=== PATIENT | female | born 1980 | race Caucasian/White ===

== ENCOUNTER 2017-02-25 23:33 | Emergency (ER) | payer MEDICAID, OTHER ==
[~2017-02-25] VITALS: Ht 160 cm; Wt 64.0 kg
[~2017-02-25 23:33] MED LIST: IBUP-1222 PO; OXYC-302 PO
[2017-02-25 23:35] VITALS: BP 119/85
[2017-02-25] MEDS ORDERED: CEFAZOLIN 1,000 MG ONE (23:57)
[2017-02-26] MEDS ORDERED: CEFAZOLIN 1,000 MG IM ONE
== END 2017-02-26 00:38 | disposition home or self-care (01) ==
LOC: ED 02-26 00:34
DX: L03.114 Cellulitis of left upper limb (principal); M41.9 Scoliosis, unspecified
CPT/HCPCS: 96372; 99283; J0690

== ENCOUNTER 2018-09-27 02:45 | Inpatient (IN) | payer MEDICAID, OTHER ==
[~2018-09-27] VITALS: Ht 161.3 cm; Wt 65.2 kg
--- NOTE | 2018-09-27 03:10 | NUR ---
PT IN GOWN IN [facility]. PT STRIPPED OF ALL PERSONAL POSSESSIONS WHICH WERE PLACED IN ONE BAG AND LOCKED IN LOCKED STORAGE. PT TEARFUL AT THIS TIME. PT EDUCATED ON ER PROCESS AND VERBALIZES UNDERSTANDING. PT PROVIDED WITH URINE CUP AND INSTRUCTED TO VOID. PT ADMITS TO USING METHAMPHETAMINE AND ATIVAN TONIGHT.
--- NOTE | 2018-09-27 03:55 | NUR ---
URINE SAMPLE COLLECTED AND WALKED TO LAB.
--- NOTE | 2018-09-27 03:55 | NUR ---
I BREATHALYZED PT AND SHE IS AT 0.000 OF 0350 HOURS
[2018-09-27 04:13] LABS: BASOPHILS # (AUTO) 0.04 x10^3/uL (0-0.1); BASOPHILS % (AUTO) 1 % (0-1); EOSINOPHILS # (AUTO) 0.18 x10^3/uL (0-0.4); EOSINOPHILS % (AUTO) 2 % (1-7); LYMPHOCYTES # (AUTO) 1.96 x10^3/uL (1-3.4); LYMPHOCYTES % (AUTO) 25 % (22-44); MD NO; MEAN CORPUSCULAR HEMOGLOBIN 30.6 pg (27.0-34.8); MEAN CORPUSCULAR VOLUME 89.9 fL (80-100); MEAN PLATELET VOLUME 7.8 fL (7.4-10.4); MONOCYTES # (AUTO) 0.56 x10^3/uL (0.2-0.8); MONOCYTES % (AUTO) 7 % (2-9); NEUTROPHILS % (AUTO) 65 % (42-75); PLATELET COUNT 282 x10^3/uL (130-400); RED BLOOD COUNT 4.38 x10^6/uL (3.82-5.3); RED CELL DISTRIBUTION WIDTH 12.9 % (9.6-15.2)
[2018-09-27] MEDS ORDERED: ZIPRASIDONE 20 MG INJ IM ONE ×2 (04:18→04:30)
[2018-09-27 04:25] LABS: ALANINE AMINOTRANSFERASE 20 U/L (12-78); ALBUMIN 3.6 g/dL (3.4-5.0); ANION GAP 6 mmol/L (5-15); CALCIUM 8.9 mg/dL (8.5-10.1); CHLORIDE 106 mmol/L (98-107)
[2018-09-27 04:30] LABS: ALKALINE PHOSPHATASE 75 U/L (45-117); BILIRUBIN,TOTAL 0.3 mg/dL (0.2-1.0); SALICYLATE LEVEL < 1.7 mg/dL (2.8-20.0); TOTAL PROTEIN 7.6 g/dL (6.4-8.2)
[2018-09-27 04:32] LABS: AMPHETAMINE SCREEN, URINE Positive (Negative); BARBITURATE SCREEN, URINE Negative (Negative); BENZODIAZEPINE SCREEN, URINE Negative (Negative); CANNABINOID SCREEN, URINE Negative (Negative); COCAINE SCREEN, URINE Negative (Negative); METHADONE SCREEN, URINE Negative (Negative); OPIATE SCREEN, URINE Negative (Negative)
[2018-09-27 04:38] LABS: ACETAMINOPHEN < 2 mcg/mL (10-30)
--- NOTE | 2018-09-27 04:55 | NUR ---
pt medicated per mar for anxiety. pt cooperative with security at bs.
--- NOTE | 2018-09-27 05:05 | NUR ---
pt asleep in [facility] at this time; lilan. Sitter outside of room at this time.
--- NOTE | 2018-09-27 05:40 | NUR ---
pt asleep in [facility] at this time; el. sitter outside of room for direct observation of pt at this time.
--- NOTE | 2018-09-27 06:02 | NUR ---
TP RN: PACKET FAXED TO [facility] ONLY PT. IS SELF PAY. CONFIRMATION FAX RECEIVED.
--- NOTE | 2018-09-27 07:02 | NUR ---
PT SLEEPING IN [facility] AT THIS TIME; NITIN. SITTER OUTSIDE OF ROOM FOR DIRECT PT OBSERVATION.
--- NOTE | 2018-09-27 07:09 | NUR ---
report of pt to janelle akins. all questions answered.
--- NOTE | 2018-09-27 07:21 | NUR ---
RECEIVED REPORT AND ASSUMED PT. CARE. PT. IS RESTING WITHOUT CONCERNS.
--- NOTE | 2018-09-27 07:26 | NUR ---
SAFETY MEASURES MAINTAINED, SITTER REMAINS OUTSIDE OF THE ROOM.
--- NOTE | 2018-09-27 08:31 | NUR ---
PT. WAS GIVEN BREAKFAST. PT. WILL NOT SPEAK TO THE RN. VITALS MONITORED. SAFETY MEASURES MAINTAINED.
--- NOTE | 2018-09-27 10:55 | NUR ---
PT. WAS SEEN BY THE HOSPITALIST AT THIS TIME.
[2018-09-27] MEDS ORDERED: POLYETHYLENE GLYCOL 17 GM PACKET PO PRN (11:00)
[2018-09-27] MEDS ORDERED: BISACODYL 10 MG SUPP PR PRN (11:00)
[2018-09-27] MEDS ORDERED: DOCUSATE 100 MG CAPSULE PO PRN (11:00)
[2018-09-27] MEDS ORDERED: hydrALAzine 20 MG/ML, 1ML IVPush PRN (11:00)
[2018-09-27] MEDS ORDERED: ONDANSETRON ODT 4 MG PO PRN (11:00)
--- NOTE | 2018-09-27 11:07 | NUR ---
NO CHANGE AT THIS TIME.
[2018-09-27] MEDS: ENOXAPARIN 40 MG/0.4 ML SQ SCH (11:11)
[2018-09-27 11:13] LABS: FREE T4 (FREE THYROXINE) 0.89 ng/dL (0.76-1.46); THYROID STIMULATING HORMONE 4.1 mIU/L (0.358-3.740)
[2018-09-27] MEDS ORDERED: NICOTINE 21 MG/24 HR PATCH.TD24 ONE (11:49)
[2018-09-27] MEDS: NICOTINE 21 MG/24 HR PATCH.TD24 TD SCH (11:58)
--- NOTE | 2018-09-27 12:05 | NUR ---
PT. 'S VITALS ARE STABLE. PT. WAS GIVEN LUNCH.
--- NOTE | 2018-09-27 14:41 | NUR ---
PT. WAS ANXIOUS AFTER HER S/O VISITED HER. DISCUSSED WITH THE HOSPITALIST. ORDERS RECEIVED, PT. WAS MEDICATED ORDERED. PT. IS EATING CEREAL AT THIS TIME.
--- NOTE | 2018-09-27 15:21 | NUR ---
REPORT GIVEN PT. TRANSFERRED TO [address] [place] [address].
[2018-09-27 16:08] VITALS: BP 102/66
[2018-09-27 19:44] VITALS: BP 108/73
[2018-09-27] MEDS: ZOLPIDEM 5MG TABLET PO PRN (23:16)
[2018-09-27] MEDS: ACETAMINOPHEN 325 MG TABLET PO PRN (23:16)
[2018-09-28 05:51] LABS: BASOPHILS # (AUTO) 0.06 x10^3/uL (0-0.1); BASOPHILS % (AUTO) 1 % (0-1); EOSINOPHILS # (AUTO) 0.23 x10^3/uL (0-0.4); EOSINOPHILS % (AUTO) 3 % (1-7); LYMPHOCYTES % (AUTO) 40 % (22-44); MD NO; MEAN CORPUSCULAR HEMOGLOBIN 29.8 pg (27.0-34.8); MEAN CORPUSCULAR HGB CONC 32.9 g/dL (32.4-35.8); MEAN CORPUSCULAR VOLUME 90.6 fL (80-100); MEAN PLATELET VOLUME 8.2 fL (7.4-10.4); MONOCYTES # (AUTO) 0.62 x10^3/uL (0.2-0.8); MONOCYTES % (AUTO) 8 % (2-9); NEUTROPHILS # (AUTO) 3.73 x10^3/uL (1.8-6.8); NEUTROPHILS % (AUTO) 48 % (42-75); PLATELET COUNT 301 x10^3/uL (130-400); RED BLOOD COUNT 4.32 x10^6/uL (3.82-5.3); RED CELL DISTRIBUTION WIDTH 12.7 % (9.6-15.2)
[2018-09-28 05:56] LABS: ANION GAP 6 mmol/L (5-15); CALCIUM 8.9 mg/dL (8.5-10.1); CHLORIDE 104 mmol/L (98-107)
[2018-09-28 05:57] LABS: CREATININE 0.63 mg/dL (0.55-1.02)
[2018-09-28 07:49] VITALS: BP 116/79
[2018-09-28] MEDS: NICOTINE 21 MG/24 HR PATCH.TD24 TD SCH (11:05)
[2018-09-28] MEDS: ENOXAPARIN 40 MG/0.4 ML SQ SCH (11:05)
[2018-09-28 20:25] VITALS: BP 101/67
[2018-09-28] MEDS: ACETAMINOPHEN 325 MG TABLET PO PRN (21:46)
[2018-09-28] MEDS: ZOLPIDEM 5MG TABLET PO PRN (21:46)
[2018-09-29 08:00] VITALS: BP 111/64
[2018-09-29] MEDS: NICOTINE 21 MG/24 HR PATCH.TD24 TD SCH (11:00)
[2018-09-29] MEDS: ENOXAPARIN 40 MG/0.4 ML SQ SCH (12:00)
[2018-09-29] MEDS ORDERED: NICOTINE 21 MG/24 HR PATCH.TD24 TD ONE (16:00)
[2018-09-29 20:00] VITALS: BP 112/75
[2018-09-29] MEDS: ZOLPIDEM 5MG TABLET PO PRN (21:03)
[2018-09-30] MEDS: ZOLPIDEM 5MG TABLET PO PRN (01:21)
[2018-09-30 07:53] VITALS: BP 99/65
[2018-09-30] MEDS: NICOTINE 21 MG/24 HR PATCH.TD24 TD SCH (11:06)
[2018-09-30] MEDS: ENOXAPARIN 40 MG/0.4 ML SQ SCH (11:07)
[2018-09-30 20:22] VITALS: BP 109/73
[2018-09-30] MEDS: TRAZODONE 50MG TABLET PO PRN (21:22)
[2018-09-30] MEDS: ACETAMINOPHEN 325 MG TABLET PO PRN (22:37)
[2018-10-01] MEDS: ACETAMINOPHEN 325 MG TABLET PO PRN (06:30)
[2018-10-01 08:00] VITALS: BP 103/75
[2018-10-01] MEDS: NICOTINE 21 MG/24 HR PATCH.TD24 TD SCH (11:07)
[2018-10-01] MEDS: ENOXAPARIN 40 MG/0.4 ML SQ SCH ×2 (12:00→12:12)
[2018-10-01] MEDS: NICOTINE 7 MG/24 HR PATCH.TD24 TD SCH (17:10)
[2018-10-01] MEDS: MAGNESIUM HYDROXIDE 8%, 30ML UDC PO PRN (17:46)
[2018-10-01 20:03] VITALS: BP 108/69
[2018-10-01] MEDS: TRAZODONE 50MG TABLET PO PRN (21:12)
[2018-10-02 07:52] VITALS: BP 92/57
[2018-10-02] MEDS: ENOXAPARIN 40 MG/0.4 ML SQ SCH (12:00)
[2018-10-02] MEDS: MAGNESIUM HYDROXIDE 8%, 30ML UDC PO PRN (14:54)
[2018-10-02] MEDS: ACETAMINOPHEN 325 MG TABLET PO PRN (14:54)
[2018-10-02] MEDS: NICOTINE 7 MG/24 HR PATCH.TD24 TD SCH (17:30)
[2018-10-02 19:42] VITALS: BP 100/61
[2018-10-02] MEDS: TRAZODONE 50MG TABLET PO PRN (21:13)
[2018-10-03 08:00] VITALS: BP 94/57
[2018-10-03] MEDS: ENOXAPARIN 40 MG/0.4 ML SQ SCH (11:52)
[2018-10-03] MEDS ORDERED: NICOTINE 7 MG/24 HR PATCH.TD24 TD SCH (17:30)
[2018-10-03] MEDS ORDERED: NICOTINE 7 MG/24 HR PATCH.TD24 ONE (17:32)
[2018-10-03 19:08] VITALS: BP 110/72
[2018-10-03] MEDS: TRAZODONE 50MG TABLET PO PRN (20:10)
[2018-10-04 07:33] VITALS: BP 84/52
== END 2018-10-04 11:28 | disposition left against medical advice (07) | DRG 881 ==
LOC: ED 07:44 → OBSVTOIN 10:40 → EDIP 10:40 → 2N 15:18
PROVIDERS: ADMIT Hospitalist; ATTEND Hospitalist
DX: F32.9 Major depressive disorder, single episode, unspecified (principal); X83.8XXA Intentional self-harm by other specified means, initial encounter; Y93.89 Activity, other specified; Y92.89 Other specified places as the place of occurrence of the external cause; Y99.8 Other external cause status; M41.9 Scoliosis, unspecified; Z72.0 Tobacco use; F15.10 Other stimulant abuse, uncomplicated; F41.1 Generalized anxiety disorder; Z81.8 Family history of other mental and behavioral disorders; Z53.21 Procedure and treatment not carried out due to patient leaving prior to being seen by health care provider
CPT/HCPCS: 36415; 80048; 80053; 80074; 80307; 80329; 84439; 84443; 84703; 85025; 87806; G0378; J1650; J3486; G0475; G0480

== ENCOUNTER 2019-11-03 11:47 | Emergency (ER) | payer MEDICAID ==
[~2019-11-03] VITALS: Ht 160 cm; Wt 73.2 kg
--- NOTE | 2019-11-03 13:00 | NUR ---
PT PRESENTS TO ED WITH C/O DYSURIA SINCE YESTERDAY, PT A&O, RESPS EVEN AND UNLABORED, NADN. URINE SENT TO LAB. AWAITING MD REASSESSMENT AND ORDERS.
[2019-11-03 13:08] LABS: CULTURE INDICATED? YES; MICROSCOPIC INDICATED
[2019-11-03 13:51] VITALS: BP 108/76
--- NOTE | 2019-11-03 13:51 | NUR ---
PT GIVEN DC INSTRUCTIONS AND SCRIPT, EDUCATED REGARDING DC RX FOR OMNICEF. PT A&O, RESPS EVEN AND UNLABORED, NO COMPLAINT. PT AMBULATORY WITH STEADY GAIT TO DC.
== END 2019-11-03 13:53 | disposition home or self-care (01) ==
LOC: ED 12:22
DX: N39.0 Urinary tract infection, site not specified (principal); F17.200 Nicotine dependence, unspecified, uncomplicated
CPT/HCPCS: 81001; 81025; 87086; 99283

== ENCOUNTER 2021-01-27 09:37 | Emergency (ER) | payer BC ==
[~2021-01-27] VITALS: Ht 161.3 cm; Wt 73.9 kg
[~2021-01-27 09:37] MED LIST changes: -OXYC-302 PO; +OXYC1TAB14 PO
[2021-01-27 09:48] VITALS: BP 116/79
--- NOTE | 2021-01-27 10:15 | NUR ---
SORE THROAT X3 DAYS MILD PARYNX EDEMA NO COUGH
--- NOTE | 2021-01-27 11:28 | NUR ---
Patient given discharge instructions and they have confirmed that they understand the instructions. Patient ambulatory with steady gait.
== END 2021-01-27 11:29 | disposition home or self-care (01) ==
LOC: ED 11:00
DX: J02.8 Acute pharyngitis due to other specified organisms (principal); B97.89 Other viral agents as the cause of diseases classified elsewhere
CPT/HCPCS: 87081; 87880; 99283